=== PATIENT | male | born 1995 | race Asian ===

== ENCOUNTER 2017-01-01 17:25 | Emergency (ER) | payer BC ==
--- NOTE | 2017-01-01 17:31 | EDPHY ---
H & P Smoking Status: Unknown if ever smoked Time Seen by Provider: 01/01/17 17:26 HPI/ROS: CHIEF COMPLAINT: Agitation and psychosis HISTORY OF PRESENT ILLNESS: This 21-year-old man is brought in by police after mother called for increasing agitation. According to police the patient has been increasingly psychotic and paranoid running up to and upstairs apartment and banging on the door thinking people are talking about him. He is talking to or hearing voices from zoroastrianism figures such as [place]. Per the superintendent police mental health hold he hears things and "the devil tells him to do things." REVIEW OF SYSTEMS: Eye: no change in vision ENT: no sore throat Cardiac: no chest pain or syncope Pulmonary: no cough or SOB Abdomen: no vomiting, diarrhea, abdominal pain Musculoskeletal: no back pain Skin: no rash Neuro: no headache Constitutional: no fever : no urinary symptoms A comprehensive 10 point review of systems is otherwise negative aside from elements mentioned in the history of present illness. PAST MEDICAL HISTORY: Bipolar disorder Social history: Denies drugs tobacco or alcohol General Appearance: Alert but only intermittently cooperative. Eyes: No scleral icterus. ENT, Mouth: Normal mucous membranes. No tongue laceration or abrasion. Respiratory: Normal respiratory effort, breath sounds equal, lungs are clear to auscultation. Cardiovascular: Regular rate and rhythm. Gastrointestinal: Abdomen is soft and non tender. Neurological: Alert and oriented x3. Normally conversant. Face symmetric, normal movement and sensation in all extremities. Skin: No lacerations or abrasions Musculoskeletal: No peripheral edema and no joint swelling. Psychiatric: Intermittently cooperative and then will refuse to make eye contact. Emergency Department course/MDM: Patient arrives on a mental health hold. Plan for screening labs and psychiatric evaluation [facility] with [facility] evaluation in progress. ( Hilario Altamirano) Constitutional: Initial Vital Signs Temperature (C) 37.2 C 01/01/17 17:41 Heart Rate 96 01/01/17 17:41 Respiratory Rate 20 01/01/17 17:41 Blood Pressure 148/94 H 01/01/17 17:41 O2 Sat (%) 95 01/01/17 17:41 O2 Delivery Mode Room Air Allergies/Adverse Reactions: No Known Allergies Allergy (Unverified 11/29/12 12:40) Home Medications: Medication Instructions Recorded LaMICtal 01/01/17 Zyprexa 01/01/17 Medical Decision Making ED Course/Re-evaluation: 0427AM: No acute events overnight. Patient has been accepted by Dr. Thompson at [address] [place] [address]. Plan for transfer at 8:30 a.m.. EMTALA filled out. Appropriate transfer will be set up. (Donn Gilmore) Differential Diagnosis: Differential for psychosis considered including but not limited to bipolar disorder, schizophrenia, drug or alcohol, metabolic. (Hilario Altamirano) - Data Points Laboratory Results: Laboratory Results 01/01/17 17:50 01/01/17 17:50 01/01/17 01/01/17 01/01/17 19:12 17:50 17:50 WBC 9.36 10^3/uL 10^3/uL (3.80-9.50) RBC 5.14 10^6/uL 10^6/uL (4.40-6.38) Hgb 15.8 g/dL g/dL (13.7-17.5) Hct 45.7 % % (40.0-51.0) MCV 88.9 fL fL (81.5-99.8) MCH 30.7 pg pg (27.9-34.1) MCHC 34.6 g/dL g/dL (32.4-36.7) RDW 12.9 % % (11.5-15.2) Plt Count 223 10^3/uL 10^3/uL (150-400) MPV 9.5 fL fL (8.7-11.7) Neut % (Auto) 75.2 % H % (39.3-74.2) Lymph % (Auto) 17.2 % % (15.0-45.0) Barnes % (Auto) 7.1 % % (4.5-13.0) Eos % (Auto) 0.0 % L % (0.6-7.6) Baso % (Auto) 0.3 % % (0.3-1.7) Nucleat RBC Rel Count 0.0 % % (0.0-0.2) Absolute Neuts (auto) 7.04 10^3/uL H 10^3/uL (1.70-6.50) Absolute Lymphs (auto) 1.61 10^3/uL 10^3/uL (1.00-3.00) Absolute Monos (auto) 0.66 10^3/uL 10^3/uL (0.30-0.80) Absolute Eos (auto) 0.00 10^3/uL L 10^3/uL (0.03-0.40) Absolute Basos (auto) 0.03 10^3/uL 10^3/uL (0.02-0.10) Absolute Nucleated RBC 0.00 10^3/uL 10^3/uL (0-0.01) Immature Gran % 0.2 % % (0.0-1.1) Immature Gran # 0.02 10^3/uL 10^3/uL (0.00-0.10) Sodium 139 mEq/L mEq/L (134-144) Potassium 4.0 mEq/L mEq/L (3.5-5.2) Chloride 106 mEq/L mEq/L (97-110) Carbon Dioxide 22 mEq/l mEq/l (22-31) Anion Gap 11 mEq/L mEq/L (8-16) BUN 15 mg/dL mg/dL (7-23) Creatinine 1.2 mg/dL mg/dL (0.7-1.3) Estimated GFR > 60 Glucose 108 mg/dL H mg/dL (70-100) Calcium 9.9 mg/dL mg/dL (8.5-10.4) Urine Opiates Screen NEGATIVE (NEGATIVE) Urine Barbiturates NEGATIVE (NEGATIVE) Ur Phencyclidine Scrn NEGATIVE (NEGATIVE) Ur Amphetamine Screen NON-NEGATIVE H (NEGATIVE) U Benzodiazepines Scrn NEGATIVE (NEGATIVE) Urine Cocaine Screen NEGATIVE (NEGATIVE) U Marijuana (THC) Screen NON-NEGATIVE H (NEGATIVE) Ethyl Alcohol < 10 mg/dL mg/dL (0-10) Departure - Departure Disposition: [facility] IP Clinical Impression: Bipolar disorder Qualifiers: Active/Remission status: currently active Current bipolar episode type: manic Current episode severity: severe Psychotic features: with psychotic features Qualified Code(s): F31.2 - Bipolar disorder, current episode manic severe with psychotic features Condition: Good Referrals: NONE *PRIMARY CARE P,. [Primary Care Provider] - As per Instructions
[2017-01-01 18:02] LABS: % IMMATURE GRANULYOCYTES 0.2 % (0.0-1.1); ABSOLUTE IMMATURE GRANULOCYTES 0.02 10^3/uL (0.00-0.10); ADD DIFF? NO; ADD MORPH? NO; ADD SCAN? NO; ATYPICAL LYMPHOCYTE FLAG 0 (0-99); FRAGMENT RBC FLAG 0 (0-99); HEMATOCRIT 45.7 % (40.0-51.0); HEMOGLOBIN 15.8 g/dL (13.7-17.5); LEFT SHIFT FLG 0 (0-99); LIPEMIA HEMOLYSIS FLAG 90 (0-99); MEAN CELL HEMOGLOBIN 30.7 pg (27.9-34.1); MEAN CELL HEMOGLOBIN CONCENTR. 34.6 g/dL (32.4-36.7); MEAN CELL VOLUME 88.9 fL (81.5-99.8); MEAN PLATELET VOLUME 9.5 fL (8.7-11.7); PLATELET CLUMPS FLAG 0 (0-99); PLATELET COUNT 223 10^3/uL (150-400); RED BLOOD CELL COUNT 5.14 10^6/uL (4.40-6.38); RED CELL DISTRIBUTION WIDTH 12.9 % (11.5-15.2)
[2017-01-01 18:15] LABS: ANION GAP 11 mEq/L (8-16); CALCIUM 9.9 mg/dL (8.5-10.4); CARBON DIOXIDE 22 mEq/l (22-31); CHLORIDE 106 mEq/L (97-110); CREATININE 1.2 mg/dL (0.7-1.3); ETHANOL SERUM < 10 mg/dL (0-10); GLOMERULAR FILTRATION RATE > 60; GLUCOSE 108 mg/dL (70-100); SODIUM 139 mEq/L (134-144)
[2017-01-02] MEDS ORDERED: OLANZapine DISINTEGR 10 MG TAB PO ONE (07:18)
[2017-01-02 11:04] VITALS: BP 118/66; PULSE 60; RESP 16; TEMP 98.1; O2SAT 97
== END 2017-01-02 12:33 ==
DX: F31.2 Bipolar disorder, current episode manic severe with psychotic features (principal)
CPT/HCPCS: 80305; G0480